=== PATIENT | male | born 1940 | race Caucasian/White ===

== ENCOUNTER → 2017-06-05 | Outpatient (CLI) | payer OTHER ==
[~2017-06-05] MED LIST: ACTOS 30 MG TAB30 M2 PO; ALLOPURINOL 30300 M2 PO; BYETTA PEN 11 PENIN2 SUBQ; FENOFIBRATE160 MG PO; LISINOPRIL20 MG PO; NEURONTIN600 MG PO; ZOCOR40 MG PO
--- NOTE | ~2017-06-05 | 2DMMODE ---
[facility] [place] [address] 2 D/M-MODE ECHOCARDIOGRAM Name: JOYCEZION L Room #: REG [facility]#: [id number] Admission: 06/05/17 Attend Phys: Yordan Suero MD Discharge: Date of : 36 Date of Service: 06/05/17 1205 Report #: [id number] THIS REPORT FOR: //name// APPROVED REPORT Study performed: 06/05/2017 09:50:28 EXAM: Comprehensive 2D, Doppler, and color-flow Echocardiogram Patient Location: Out-Patient Status: routine Other Information Study Quality: Adequate/Low parastenal window Indications Hx: CABG, HTN, HLP, DM 2D Dimensions RVDd: 45.42 mm LVEF(%): 50.50 (>50%) IVSd: 9.79 (7-11mm) LVOT Diam: 19.61 (18-24mm) LVDd: 45.32 mm PWd: 8.81 (7-11mm) LVDs: 33.73 (25-40mm) Aortic Root: 31.33 mm Alberto's LVEF: 50.50 % Volumes Left Atrial Volume (Systole) Single Plane 4CH: 69.15 mL Single Plane 2CH: 76.33 mL LA ESV Index: 36.00 mL/m2 Aortic Valve AoV Peak Sam.: 1.24 m/s AO Peak Gr.: 6.12 mmHg Mitral Valve MV Decel. Time: 157.96 ms MV E Max Sam.: 1.14 m/s IVRT: 64.59 ms Tricuspid Valve TR Peak Sam.: 2.31 m/s RAP Estimate: 5.00 mmHg TR Peak Gr.: 21.45 mmHg PA Pressure: 26.00 mmHg [facility] [address] [place] [address] 2 D/M-MODE ECHOCARDIOGRAM Name: ZION COOK Room #: [facility]#: [id number] Admission: 06/05/17 Attend Phys: Yordan Suero MD Discharge: Date of : 36 Date of Service: 06/05/17 1205 Report #: [id number] Left Ventricle The left ventricle is normal size. There is normal LV segmental wall motion. There is normal left ventricular wall thickness. Left ventricular systolic function is normal. LVEF is 50-55%. This study is not technically sufficient to allow evaluation of the LV diastolic function due to atrial fibrillation. Right Ventricle Right ventricle is not well visualized. Appears mildly dilated. Atria Left atrium is mildly dilated. Right atrium is mildly dilated. Aortic Valve The aortic valve is not well visualized. Appears mildly calcified. No aortic regurgitation is present. There is no aortic valvular stenosis. Mitral Valve The mitral valve is mildly thickened. Mild mitral annular calcification. Mild to moderate mitral regurgitation. Tricuspid Valve The tricuspid valve is normal in structure. There is mild to moderate tricuspid regurgitation. The right atrial pressure is estimated at 5 mmHg. Estimated PAP of 26mmHg. Pulmonic Valve Pulmonic valve is not well visualized. Great Vessels The aortic root is normal in size. Ascending aorta is not well visualized. IVC is normal in size and collapses >50% with inspiration. Pericardium There is no pericardial effusion. <Conclusion> The left ventricle is normal size. Left ventricular systolic function is normal. Left atrium is mildly dilated. Right atrium is mildly dilated. [facility] [place] [address] 2 D/M-MODE ECHOCARDIOGRAM Name: JOYCEZION L Room #: REG [facility]#: [id number] Admission: 06/05/17 Attend Phys: Yordan Suero MD Discharge: Date of : 36 Date of Service: 06/05/17 120 Report #: [id number] There is no aortic valvular stenosis. Mild to moderate mitral regurgitation. There is mild to moderate tricuspid regurgitation. The right atrial pressure is estimated at 5 mmHg. Estimated PAP of 26mmHg. There is no pericardial effusion. <ELECTRONICALLY SIGNED> By: Yordan Suero MD 06/05/175 04 1205 Yordan Suero MD /INF
== END ==
LOC: CV 08:43
DX: I25.119 Atherosclerotic heart disease of native coronary artery with unspecified angina pectoris (principal)

== ENCOUNTER → 2017-12-14 | Outpatient (CLI) | payer OTHER ==
[~2017-12-14] MED LIST changes: +ELIQUIS2.5 MG PO; +LIPITOR 20 MG T20 M1 PO; +TOPROL XL25 MG PO
== END ==
LOC: NUC 10:55 → EDSTATUS 13:24
DX: I25.10 Atherosclerotic heart disease of native coronary artery without angina pectoris (principal); E78.5 Hyperlipidemia, unspecified; E11.9 Type 2 diabetes mellitus without complications; I48.91 Unspecified atrial fibrillation; I10 Essential (primary) hypertension; Z95.1 Presence of aortocoronary bypass graft; Z87.891 Personal history of nicotine dependence

== ENCOUNTER → 2017-12-21 | Outpatient (CLI) | payer OTHER ==
[~2017-12-21] VITALS: Ht 170.2 cm; Wt 88.5 kg
--- NOTE | ~2017-12-21 | EKG ---
[place] [address] [facility] [place] [address] ELECTROCARDIOGRAM REPORT Name: ZION COOK [id number] Admission: 12/21/17 Attend Phys: Yordan Suero MD Discharge: Date of : 36 Report #: [id number] THIS REPORT FOR: //name// [facility] Test Date: 2017-12-21 Test Time: 07:01:53 Pat Name: ZION COOK Department: Room: Gender: M Gang Investigator: : 1940 Requested By: Yordan Suero Order Number: [id number] MD: Jacob Martin Measurements Intervals [place] Rate: 104 P: LA: QRS: 13 QRSD: 94 T: 29 QT: 304 QTc: 400 Interpretive Statements Atrial fibrillation Low voltage, extremity and precordial leads Compared to ECG 01/04/2000 23:16:48 Low QRS voltage now present Sinus rhythm no longer present Electronically Signed On 12-21-2017 9:01:45 GARAGE ATTENDANT by Jacob Martin [email or web address] <ELECTRONICALLY SIGNED> By: Jacob Martin MD, [facility] 12/21/17900 D: 02700 0 Jacob Martin MD, FACC /EPI
[2017-12-21 07:19] VITALS: BP 94/51
[2017-12-21 07:22] LABS: MCH 29.4 pg (26.0-34.0); MCHC 32.4 g/dL (28.0-37.0); MCV 90.7 fL (80.0-100.0); RBC 4.41 mil/uL (4.50-6.00); RDW 16.5 % (10.5-14.5); WBC 6.3 thou/uL (4.0-11.0)
[2017-12-21 07:33] LABS: CALCIUM 9.4 mg/dL (8.5-10.1); POTASSIUM 5.5 mmol/L (3.5-5.1)
== END ==
LOC: CATH 06:34
PROVIDERS: Internal Medicine Cardiovascular Disease
DX: I48.91 Unspecified atrial fibrillation (principal); Z53.9 Procedure and treatment not carried out, unspecified reason

== ENCOUNTER → 2018-01-01 | Outpatient (CLI) | payer OTHER ==
[~2018-01-01] VITALS: Ht 170.2 cm; Wt 89.4 kg
--- NOTE | ~2018-01-01 | EKG ---
[address] [place] [address] ELECTROCARDIOGRAM REPORT Name: ZION COOK [facility] [id number] Admission: 01/01/18 Attend Phys: Yordan Suero MD Discharge: Date of : 36 Report #: [id number] THIS REPORT FOR: //name// [facility] Test Date: 2018-01-01 Test Time: 09:45:29 Pat Name: ZION COOK Department: Room: Gender: Ribbon Inker: Ivy SOLIMAN : 1940 Requested By: Yordan Suero Order Number: [id number] MD: Jacob Martin Measurements Intervals [place] Rate: 95 P: DC: QRS: 1 QRSD: 87 T: 25 QT: 325 QTc: 409 Interpretive Statements Atrial fibrillation Low voltage, extremity leads Compared to ECG 12/21/2017 07:01:53 No significant changes Electronically Signed On 01-01-2018 14:14:35 CORE INSERTER by Jacob Martin [email or web address] <ELECTRONICALLY SIGNED> By: Jacob Martin MD, [facility] 01/01/18 1414 0945 0945 Jacob Martin MD, FACC /EPI
--- NOTE | ~2018-01-01 | HC ---
[facility] [place] [address] CONSULTATION Name: ZION COOK Room #: REG [facility]#: [id number] Admission: 01/01/18 Attend Phys: Yordan Suero MD Discharge: Date of : 36 Report #: [id number] THIS REPORT FOR: //name// CC: Yordan Mccarty DATE OF SERVICE: 01/01/2018 ATTENDING PHYSICIANS: Dr. Mccarty and Dr. Suero. REASON FOR CONSULTATION: Chronic kidney disease. HISTORY OF PRESENT ILLNESS: The patient followed in our office with CKD stage 3, baseline creatinine 1.5 to 2. He has a history of coronary artery disease and a recent abnormal stress test and is here for a heart catheterization. He is not really having anything in the way of chest pain, may be just some very minor symptoms in that regard. He is not short winded. PAST MEDICAL HISTORY: He has had previous coronary artery bypass in 1991, history of hypertension and chronic atrial fibrillation and he has had previous cataract surgeries. HOME MEDICATIONS: As listed include allopurinol 300 mg daily, Eliquis 2.5 mg daily, atorvastatin 20 mg daily, Byetta, Fenofibrate 160 mg daily, Neurontin 600 mg, lisinopril 20 mg daily, and metoprolol XL 25 mg daily. FAMILY HISTORY: Positive for cancer and heart disease and some diabetes. No renal disease. SOCIAL HISTORY: No cigarettes or alcohol. REVIEW OF SYSTEMS: GENERAL: He has been feeling reasonably well. EYES: Vision is fine. ENT: Hearing okay. Swallows okay. Denies mouth sores or ulcers. ENDOCRINE: Positive for the diabetes. RESPIRATORY: Denies shortness of breath, pleuritic pain, hemoptysis, or cough. CARDIAC: Some very minor chest pains. GASTROINTESTINAL: No nausea, vomiting, diarrhea, or bloody stool. GENITOURINARY: Reasonable urinary stream without dysuria, hematuria, or history of renal stone. NEUROLOGIC: He has got some numbness and burning at the bottom of his feet. MUSCULOSKELETAL: No arthritis. PHYSICAL EXAMINATION: GENERAL: This is a reasonably well-appearing elderly gentleman. [facility] [address] [place] [address] CONSULTATION Name: ZION COOK RADHA Room #: REG [facility]#: [id number] Admission: 01/01/18 Attend Phys: Yordan Suero MD Discharge: Date of : 36 Report #: [id number] SKIN: Unremarkable. SKELETAL: Well developed, well nourished. HEENT: Extraocular movements are full. Vision is intact. Mucous membranes are moist. NECK: No carotid bruits heard. CHEST: Clear to auscultation. HEART: Regular. ABDOMEN: Soft, nontender, without bruits, masses or organomegaly. EXTREMITIES: Show 1+ ankle edema. NEUROLOGIC: Shows some numbness in the feet. LABORATORY DATA: Hemoglobin is 13.7. Sodium 138, potassium 4.9, chloride 105, bicarbonate 27, creatinine 1.5, and BUN 40. ASSESSMENT: 1. Chronic kidney disease stage 3, followed in the office, apparently has diabetic nephropathy, I do not have a urine test available. 2. Positive stress test. He will be getting heart cath, he seems to be in good shape. Lisinopril has been on hold. 3. Chronic atrial fibrillation, on Eliquis. 4. History of coronary artery bypass, remote. <ELECTRONICALLY SIGNED> By: Adrián Maldonado MD 01/05/18 0823 1043 1553 Adrián Maldonado MD /nt
[2018-01-01 08:29] VITALS: BP 94/52
[2018-01-01 09:03] LABS: HEMATOCRIT 41.8 % (42.0-52.0); HEMOGLOBIN 13.7 gm/dL (14.0-18.0); MCH 29.6 pg (26.0-34.0); MCHC 32.8 g/dL (28.0-37.0); MCV 90.3 fL (80.0-100.0); RBC 4.63 mil/uL (4.50-6.00); WBC 7.1 thou/uL (4.0-11.0)
[2018-01-01 09:13] LABS: CALCIUM 9.8 mg/dL (8.5-10.1); CREATININE 1.5 mg/dL (0.7-1.3); POTASSIUM 4.9 mmol/L (3.5-5.1)
== END | disposition home or self-care (01) ==
LOC: CATH 07:49
PROVIDERS: Internal Medicine Cardiovascular Disease
DX: R06.09 Other forms of dyspnea (principal); Z53.9 Procedure and treatment not carried out, unspecified reason; I10 Essential (primary) hypertension; E11.9 Type 2 diabetes mellitus without complications; E78.5 Hyperlipidemia, unspecified; M19.90 Unspecified osteoarthritis, unspecified site; J44.9 Chronic obstructive pulmonary disease, unspecified; I25.10 Atherosclerotic heart disease of native coronary artery without angina pectoris; I25.2 Old myocardial infarction; I48.91 Unspecified atrial fibrillation; N19 Unspecified kidney failure; E66.09 Other obesity due to excess calories; Z79.899 Other long term (current) drug therapy; Z79.01 Long term (current) use of anticoagulants; Z95.1 Presence of aortocoronary bypass graft; Z87.891 Personal history of nicotine dependence; Z88.8 Allergy status to other drugs, medicaments and biological substances

== ENCOUNTER → 2019-01-07 | Outpatient (CLI) | payer OTHER | LOC: RAD 13:34 | DX: J98.4 Other disorders of lung (principal) ==

== ENCOUNTER → 2019-02-18 | Outpatient (CLI) | payer OTHER ==
--- NOTE | 2019-02-18 15:24 | 2DMMODE ---
[facility] [place] [address] 2 D/M-MODE ECHOCARDIOGRAM Name: ZION COOK RADHA Room #: REG [facility]#: [id number] ������������� Admission: 02/18/19 ������������� Attend Phys: Yordan Suero MD Discharge: ��� ������������� ��� Date of : 36 Date of Service: 02/18/19 1523 �� Report #: [id number] �������� ��������������������������������������������[id number] THIS REPORT FOR: //name// APPROVED REPORT Study performed: 02/18/2019 13:42:35 EXAM: Comprehensive 2D, Doppler, and color-flow Echocardiogram Patient Location: Echo lab Status: routine BSA: 2.02 HR: 120 bpm BP: 125/75 mmHg Other Information Study Quality: Technically Difficult/Technically Limited. Low parasternal window Technically limited study due to body habitus, lung disease. Indications Diabetes CAD Hypertension/HDD CABG 2D Dimensions RVDd: 38.61 mm IVSd: 9.73 (7-11mm) LVOT Diam: 18.81 (18-24mm) LVDd: 40.14 mm PWd: 10.27 (7-11mm) LVDs: 32.21 (25-40mm) Aortic Root: 24.96 mm IVC: 16.00 mm Volumes Left Atrial Volume (Systole) Single Plane 4CH: 59.18 mL Single Plane 2CH: 72.64 mL LA ESV Index: 36.00 mL/m2 Aortic Valve AoV Peak Sam.: 1.15 m/s AO Peak Gr.: 5.30 mmHg LVOT Max P.45 mmHg LVOT Max V: 0.78 m/s RITU Vmax: 1.89 cm2 [facility] [address] [place] [address] 2 D/M-MODE ECHOCARDIOGRAM Name: JOYCEZION RADHA Room #: REG CL [facility]#: [id number] ������������� Admission: 02/18/19 ������������� Attend Phys: Yordan Suero MD Discharge: ��� ������������� ��� Date of : 36 Date of Service: 02/18/19 1523 �� Report #: [id number] �������� ��������������������������������������������[id number] Mitral Valve MV Decel. Time: 160.30 ms MV E Max Sam.: 0.99 m/s IVRT: 78.43 ms Pulmonary Valve PV Peak Sam.: 0.67 m/s PV Peak Gr.: 1.80 mmHg Tricuspid Valve TR Peak Sam.: 2.44 m/s RAP Estimate: 5.00 mmHg TR Peak Gr.: 23.84 mmHg PA Pressure: 29.00 mmHg Left Ventricle The left ventricle is normal size. There is normal left ventricular wall thickness. Left ventricular systolic function is borderline. LVEF is 50%. This study is not technically sufficient to allow evaluation of the LV diastolic function due to atrial fibrillation. Right Ventricle Right ventricle is at the upper limits of normal. Right ventricle is mildly hypokinetic. Atria Left atrium is mildly dilated. Right atrium is mildly dilated. Aortic Valve The aortic valve is normal in structure. No aortic regurgitation is present. There is no aortic valvular stenosis. Mitral Valve Mild mitral annular calcification. Mild to moderate mitral regurgitation. No evidence of mitral valve stenosis. Tricuspid Valve The tricuspid valve is normal in structure. Mild tricuspid regurgitation. PAP is estimated at 29 mmHg. Pulmonic Valve Pulmonic valve is not well visualized. Great Vessels The aortic root is normal in size. Ascending aorta is not well [facility] [address] [place] [address] 2 D/M-MODE ECHOCARDIOGRAM Name: JOYCEZION RADHA Room #: REG [facility]#: [id number] ������������� Admission: 02/18/19 ������������� Attend Phys: Yordan Suero MD Discharge: ��� ������������� ��� Date of : 36 Date of Service: 02/18/19 1523 �� Report #: [id number] �������� ��������������������������������������������[id number] visualized. IVC is normal in size and collapses >50% with inspiration. Pericardium There is no pericardial effusion. <Conclusion> The left ventricle is normal size. There is normal left ventricular wall thickness. Left ventricular systolic function is borderline. Right ventricle is at the upper limits of normal. Left atrium is mildly dilated. Right atrium is mildly dilated. The aortic valve is normal in structure. Mild mitral annular calcification. Mild to moderate mitral regurgitation. Mild tricuspid regurgitation. PAP is estimated at 29 mmHg. ��������������������������������������������� <ELECTRONICALLY SIGNED> ���������������������������������������� By: Yordan Suero MD ��������������������������������������������� 02/18/19 1523 1523 1523 Yordan Suero MD /JUANCARLOS
== END ==
LOC: CV 09:47
DX: I08.1 Rheumatic disorders of both mitral and tricuspid valves (principal); I25.10 Atherosclerotic heart disease of native coronary artery without angina pectoris; I10 Essential (primary) hypertension; E11.9 Type 2 diabetes mellitus without complications; Z95.1 Presence of aortocoronary bypass graft

== ENCOUNTER → 2019-03-05 | Outpatient (CLI) | payer OTHER | LOC: CAT 12:58 | DX: J44.9 Chronic obstructive pulmonary disease, unspecified (principal); J90 Pleural effusion, not elsewhere classified; J98.11 Atelectasis; Z87.891 Personal history of nicotine dependence ==

== ENCOUNTER → 2019-03-18 | Outpatient (CLI) | payer OTHER ==
[2019-03-18 11:17] LABS: HEMOGLOBIN 12.9 gm/dL (14.0-18.0); MCH 30.2 pg (26.0-34.0); MCV 91.4 fL (80.0-100.0); RBC 4.27 mil/uL (4.50-6.00); WBC 5.9 thou/uL (4.0-11.0)
[2019-03-18 11:24] LABS: CALCIUM 9.9 mg/dL (8.5-10.1); CREATININE 1.6 mg/dL (0.7-1.3); POTASSIUM 5.2 mmol/L (3.5-5.1)
[2019-03-18 11:29] LABS: INR 1.1; PROTIME 11.5 Seconds (9.3-11.4)
[2019-03-18 13:41] LABS: CLARITY SLIGHT CLOUDY; COLOR YELLOW; SOURCE LEFT THORACENTESIS; TOTAL VOLUME 63 mL
[2019-03-18 13:42] LABS: SOURCE LEFT THORACENTESIS
[2019-03-18 14:03] LABS: BF NUCLEATED CELLS 111; BF RBC 253
[2019-03-18 14:51] LABS: BF MACROPHAGE 9; BF NEUTROPHILS 0
[2019-03-19 14:07] LABS: BODY FLUID ALBUMIN 1.3 g/dL (()); BODY FLUID AMYLASE 32 U/L (()); BODY FLUID GLUCOSE 95 mg/dL (()); BODY FLUID LDH 72 IU/L (()); BODY FLUID PROTEIN 2.3 g/dL (())
--- NOTE | 2019-03-20 11:06 | PATH ---
[facility] [address] [place] [address] PATHOLOGY RPT PROCEDURE Name: ZION COOK Room #: REG Joce Jeff.#: [id number] ������������������ Admission: 03/18/19 ������������������ Date of : 36 Discharge: Report #: [id number] Path Case #: [id number] Note [facility] Accession Number: [id number] TESTS RESULT FLAG UNITS REF RANGE LAB Clinician Provided Cytology Information No. of containers..01 Other (Miscellaneous) Source: LEFT PLEURAL FLUID DIAGNOSIS: LEFT PLEURAL FLUID NEGATIVE FOR MALIGNANT CELLS. MESOTHELIAL CELLS ARE PRESENT. Pathologist ICD10: 02 J91.8 Signed out by: Gladys Allen MD, Pathologist NPI- [id number] Performed by: Isabel Jenkins, Reserve Operator ([facility]) Gross description: 01 40ML, YELLOW, CLEAR /LCS FLAG LEGEND: L-Low Normal,H-High Normal,LL-Alert Low,HH-Alert High <-Panic Low,>-Panic High,A-Abnormal,AA-Critical Abnormal Performed at: [address] [place] [address] Josh Mills MD, [address] [address] Gladys Allen MD, Specimen Comment: A courtesy copy of this report has been sent to Specimen Comment: [phone], . Specimen Comment: Report sent to / DR KERR Specimen Comment: A duplicate report has been generated due to demographic updates. Performed at: [address], [place], [place] [id number] MD Josh Mills MD Phone: [phone]
== END | disposition home or self-care (01) ==
LOC: ULTRA 10:24
PROVIDERS: Internal Medicine Pulmonary Disease
DX: J90 Pleural effusion, not elsewhere classified (principal); R06.02 Shortness of breath; Z79.899 Other long term (current) drug therapy

== ENCOUNTER → 2019-04-01 | Outpatient (CLI) | payer OTHER | LOC: PET 10:17 | DX: J90 Pleural effusion, not elsewhere classified (principal); R91.1 Solitary pulmonary nodule ==

== ENCOUNTER 2019-04-17 05:59 | Outpatient (CLI) | payer OTHER ==
[~2019-04-17] VITALS: Ht 170.2 cm; Wt 88.5 kg
[~2019-04-17 05:59] MED LIST changes: -ALLOPURINOL 30300 M2 PO; +BYDUREON P2 MG/0.65 SUBQ; +METOPROLOL SUC100 MG PO; +STIOLTO RESPIMAT4 GM INH; +VENTOLIN HFA 1818 GM INH; +ZYLOPRIM300 MG PO
[2019-04-17 07:32] VITALS: BP 99/64
== END 2019-04-17 09:45 | disposition home or self-care (01) ==
LOC: CAT 05:59 → TBA 05:59 → CATH 05:59 → OR 05:59 → TBA 06:00 → CAT 09:45
DX: J47.9 Bronchiectasis, uncomplicated (principal); B96.89 Other specified bacterial agents as the cause of diseases classified elsewhere; R91.1 Solitary pulmonary nodule; J96.11 Chronic respiratory failure with hypoxia; R91.8 Other nonspecific abnormal finding of lung field; I10 Essential (primary) hypertension; I48.2 Chronic atrial fibrillation; I25.10 Atherosclerotic heart disease of native coronary artery without angina pectoris; Z98.49 Cataract extraction status, unspecified eye; Z79.01 Long term (current) use of anticoagulants; Z88.7 Allergy status to serum and vaccine; Z95.1 Presence of aortocoronary bypass graft; Z79.899 Other long term (current) drug therapy; Z82.49 Family history of ischemic heart disease and other diseases of the circulatory system; Z83.3 Family history of diabetes mellitus; Z79.82 Long term (current) use of aspirin; Z88.8 Allergy status to other drugs, medicaments and biological substances; Z86.2 Personal history of diseases of the blood and blood-forming organs and certain disorders involving the immune mechanism
CPT/HCPCS: 50010; 62110; 62900; 70005

== ENCOUNTER → 2019-09-06 | Outpatient (CLI) | payer OTHER | LOC: CAT 10:08 | DX: R90.82 White matter disease, unspecified (principal); Z88.8 Allergy status to other drugs, medicaments and biological substances; Z85.118 Personal history of other malignant neoplasm of bronchus and lung ==

== ENCOUNTER 2019-10-26 08:10 | Inpatient (IN) | payer OTHER ==
[~2019-10-26] VITALS: Ht 170.2 cm; Wt 92.5 kg
[2019-10-26] VITALS (7 sets, daily range): BP systolic 90–122; BP diastolic 46–91
[2019-10-26 08:28] LABS: ABSOLUTE NEUTROPHILS 8.4 thou/uL (1.4-8.2); BASOPHILS 1.1 % (0.0-2.0); HEMATOCRIT 37.5 % (42.0-52.0); HEMOGLOBIN 12.2 gm/dL (14.0-18.0); MCHC 32.5 g/dL (28.0-37.0); MCV 92.3 fL (80.0-100.0); MONOCYTES 8.7 % (1.0-8.0); PLATELET COUNT 159 thou/uL (150-400); POLYS 80.2 % (36.0-66.0); RBC 4.07 mil/uL (4.50-6.00); RDW 15.1 % (10.5-14.5); WBC 10.5 thou/uL (4.0-11.0)
[2019-10-26 08:36] LABS: ANION GAP 10 mmol/L (7-16); BUN 37 mg/dL (7-18); CALCIUM 9.9 mg/dL (8.5-10.1); CHLORIDE 104 mmol/L (98-107); CO2 23 mmol/L (21-32); CREATININE 1.6 mg/dL (0.7-1.3); GLUCOSE 120 mg/dL (74-106); POTASSIUM 4.2 mmol/L (3.5-5.1); SODIUM 137 mmol/L (136-145)
[2019-10-26 08:45] LABS: TROPONIN-I <0.06 ng/mL (<0.06)
--- NOTE | 2019-10-26 10:50 | EKG ---
[place] [address] [facility] [place] [address] ELECTROCARDIOGRAM REPORT Name: ZION COOK [id number] Admission: 10/26/19 Attend Phys: Discharge: Date of : 36 Report #: [id number] THIS REPORT FOR: //name// [facility] ED Test Date: 2019-10-26 Test Time: 08:48:14 Pat Name: ZION COOK Department: Room: Gender: M Lead Sustainability Specialist: nicki : 1940 Requested By: Arnie Westfall Order Number: [id number] MD: Jose Keita Measurements Intervals [place] Rate: 115 P: [place]: QRS: 7 QRSD: 99 T: 18 QT: 357 QTc: 494 Interpretive Statements Atrial fibrillation Low voltage, extremity leads RSR' in V1 or V2, right VCD or RVH Borderline prolonged QT interval Compared to ECG 01/01/2018 09:45:29 Right ventricular hypertrophy now present RSR' in V1 or V2 now present Electronically Signed On 10-26-2019 10:50:18 METAL REFINER by Jose Keita [email or web address] <ELECTRONICALLY SIGNED> By: Jose Keita MD 10/26/19 1050 0848 0848 Jose Keita MD /EPI
--- NOTE | 2019-10-26 12:50 | NUR ---
REC PT FROM ED AROUND 1245, A&0X4, AMB W/CANE AND SLOW SOMEWHAT GAIT. REPORTS OF TACHY/AFIB 110-130S, 150 UP WHILE PULLING DOWN PANTS AND W/ACTIVITIES. NO C/O PAIN ANYWHERE AT THIS TIME, ANXIOUS TO HAVE HIS LUNCH THAT WAS WAITING IN THE ROOM FOR HIM. WILL DO ADMISSION AND ADD IN MEDICATIONS AND INTRO HIM TO NUSE TAKING OVER CARE. SEE SEPARATE INTERVENTIONS FOR ASSESSMENTS, CARDIAC MONITORED
--- NOTE | 2019-10-26 13:32 | NUR ---
GAVE REPORT TO ONCOMING NURSE WHO WILL HANDLE UPDATING ANY MEDS AND SENDING THEM TO PHARMACY. BED ALARM ENGAGED
[2019-10-26] MEDS ORDERED: LIPITOR 20 MG T20 M1 PO (14:47)
--- NOTE | 2019-10-26 15:56 | NUR ---
ASSUMED CARE AT 1300, SHIFT ASSESSMENT DONE, NEW ADMIT FOR MORNING NURSE. MED REC AND ALLERGIES DOCUMENTED. PT'S HAD TO HAVE A BM AND HEART RATE WENT UP TO 150-160s, DR KERR WAS INFORMED, RECEIVED ORDER FOR CARDIZEM BLOUS AND DRIP. HR IS UNDER 120 NOW. DRIP RUNNING AT 5MG/HR. PT BROUGHT HOME MEDS WITH HIM, MEDICATIONS WERE BAGGED AND SENT TO INPATIENT PHARMACY. WILL CONTINUE TO ASSESS AND ASSIST WITH ADLs NEEDED.
[2019-10-27 04:00] VITALS: BP 93/53
[2019-10-27 04:50] LABS: CALCIUM 9.1 mg/dL (8.5-10.1); CREATININE 1.9 mg/dL (0.7-1.3); POTASSIUM 4.5 mmol/L (3.5-5.1)
--- NOTE | 2019-10-27 06:18 | NUR ---
ASSUME CARE 1900. PT/VITALS STABLE. BP RUSN SOFT BUT MAP IS GREATER THAN 60. cARDIZEM DRIP RUNNING TO HELP REGULATE HR. PT STILL IN AFIB WITH HR DOWN IN THE 80s AND 90s. CARDIZEM RUNNING AT 5MG/HR TO KEEP HR < 100. PATIENT TOLERTING TREATMENT WELL. PT TOLERATES ACTIVITY WELL. UP WITH CANE /STB ASSIST TO BATHROOM. PLAN IS TO CONTINUE TO MONITOR HR/HEART RHYTHM / MANAGE COPD EXACERBATION WITH ABX AND BREATHING TREATMENTS. WILL CONITNUE TO MONITOR AND FOLLOW WITH POC
[2019-10-27 07:15] VITALS: BP 90/48
--- NOTE | 2019-10-27 08:04 | NUR ---
ASSUMED CARE OF PT APPROX 0715, A&0X4, PT'S VOICE HOARSE; HAS CONSISTENT COUGH. STATES HE EVEN ENJOYS THE INTERUPTIONS SINCE HE'S FEELING TOO ALONE AT HIS APT COMPLEX. DRY COUGH, CARDIAC GTT, B/P'S 90 W/MAP STILL >60S AT THIS CURRENT TIME. 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 SEE SEPARATE INTERVENTIONS FOR ASSESSMENTS. WILL CONTINUE TO MONITOR
[2019-10-27 15:25] VITALS: BP 134/72
[2019-10-27 15:30] VITALS: BP 98/61
--- NOTE | 2019-10-27 16:00 | NUR ---
ASSUMED CARE AT 1300, SHIFT ASSESSMENT DONE, MEDS GIVEN, VSS. AFIB ON THE MONITOR, RATE CONTROLLED. ROOM AIR, DENIES ANY PAIN, NAUSEA, VOMITING. WILL CONTINUE TO ASSESS AND ASSIST WITH ADLs NEEDED.
[2019-10-27 21:10] VITALS: BP 105/68
[2019-10-28 00:21] VITALS: BP 111/74
[2019-10-28 05:04] VITALS: BP 119/67
--- NOTE | 2019-10-28 05:42 | NUR ---
pt resting on and off in room, no c/o pain, vss, remains afib rate controlled, starting po cardizem this am, voiding per urinal, will con't to monitor per ppoc.
[2019-10-28 07:25] VITALS: BP 121/76
--- NOTE | 2019-10-28 10:35 | NUR ---
ASSUMED CARE AT 0700, SHIFT ASSESSMENT DONE, MEDS GIVEN, VSS. DENIES PAIN, NAUSEA, VOMITING. UP WITH STANDBY ASSIST, ROOM AIR, AFIB ON THE MONITOR. WORKED WITH PHYSCIAL THERAPHY, WAITING TO BE SEEN BY OCCUPATIONAL THERAPHY, WANTS TO TAKE A SHOWER, ASKED TO WAIT FOR OT. WILL CONTINUE TO ASSESS AND ASSIST WITH ADLs NEEDED.
[2019-10-28] MEDS ORDERED: RAYOS5 MG PO (13:30)
[2019-10-28] MEDS ORDERED: CEFDINIR300 MG PO (13:30)
--- NOTE | 2019-10-28 14:40 | NUR ---
patient to dc home today with HH care. patient lives alone in [facility]. he has a scooter he uses and cont to drive. He plans to call his friend for transport. [facility] has no preference of HH [facility].
[2019-10-28 14:43] VITALS: BP 119/67
--- NOTE | 2019-10-28 15:38 | NUR ---
FAXED REFERRAL TO [facility] SPOKE WITH PUJA SHE WILL REVIEW. DC TODAY. DP TO FOLLOW.
[2019-10-28 15:50] VITALS: BP 103/49
[2019-10-28 16:15] VITALS: BP 119/67
== END 2019-10-28 18:44 | disposition home health service (06) | DRG 190 ==
LOC: ER 08:10 → 2N 10:55 → EROBS 10:55 → 2N 12:50
PROVIDERS: Emergency Medicine; ADMIT Family Medicine
DX: J44.1 Chronic obstructive pulmonary disease with (acute) exacerbation (principal); N17.0 Acute kidney failure with tubular necrosis; E11.9 Type 2 diabetes mellitus without complications; I25.10 Atherosclerotic heart disease of native coronary artery without angina pectoris; I48.91 Unspecified atrial fibrillation; I10 Essential (primary) hypertension; E78.00 Pure hypercholesterolemia, unspecified; M19.90 Unspecified osteoarthritis, unspecified site; M10.9 Gout, unspecified; Z79.899 Other long term (current) drug therapy; Z88.7 Allergy status to serum and vaccine; Z85.118 Personal history of other malignant neoplasm of bronchus and lung; Z95.5 Presence of coronary angioplasty implant and graft; I25.2 Old myocardial infarction; Z87.891 Personal history of nicotine dependence; Z79.01 Long term (current) use of anticoagulants
CPT/HCPCS: 10081; 10194

== ENCOUNTER 2019-11-15 13:05 | Emergency (ER) | payer OTHER ==
[~2019-11-15] VITALS: Ht 172.7 cm; Wt 88.5 kg
[~2019-11-15 13:05] MED LIST changes: +CEFDINIR300 MG PO; +RAYOS5 MG PO
[2019-11-15 13:44] LABS: URINE BILIRUBIN NEGATIVE (Negative); URINE BLOOD NEGATIVE (Negative); URINE CLARITY CLEAR; URINE COLOR YELLOW; URINE GLUCOSE-RANDOM* NEGATIVE (Negative); URINE KETONES NEGATIVE (Negative); URINE LEUKOCYTES-REFLEX TRACE (Negative); URINE NITRITE-REFLEX NEGATIVE (Negative); URINE PROTEIN (DIPSTICK) NEGATIVE (Negative); URINE UROBILINOGEN 0.2 E.U./dl (0.2-1.0)
[2019-11-15 13:45] LABS: HEMOGLOBIN 12.9 gm/dL (14.0-18.0); MCH 29.8 pg (26.0-34.0); MCHC 32.3 g/dL (28.0-37.0); MCV 92.3 fL (80.0-100.0); PLATELET COUNT 172 thou/uL (150-400); RBC 4.33 mil/uL (4.50-6.00); RDW 16.3 % (10.5-14.5); WBC 7.9 thou/uL (4.0-11.0)
[2019-11-15 14:32] LABS: ANION GAP 8 mmol/L (7-16); BUN 66 mg/dL (7-18); CHLORIDE 116 mmol/L (98-107); CO2 22 mmol/L (21-32); CREATININE 1.5 mg/dL (0.7-1.3); DIRECT BILIRUBIN < 0.1 mg/dL (<0.1-0.2); GLUCOSE 87 mg/dL (74-106); POTASSIUM 4.5 mmol/L (3.5-5.1); SGOT 55 U/L (15-37); SGPT 42 U/L (30-65); SODIUM 146 mmol/L (136-145); TOTAL BILIRUBIN 0.4 mg/dL (<0.1-1.0); TOTAL PROTEIN 4.5 g/dL (6.4-8.2)
[2019-11-15 14:33] LABS: ABSOLUTE NEUTROPHILS 6.1 thou/uL (1.4-8.2); PLATELET ESTIMATE NORMAL
[2019-11-15 14:36] LABS: CALCIUM 7.7 mg/dL (8.5-10.1)
[2019-11-15] MEDS ORDERED: ANUSOL-HC30 GM TOP (16:28)
[2019-11-15 17:08] VITALS: BP 108/53
== END 2019-11-15 16:50 | disposition home or self-care (01) ==
LOC: ER 13:05
PROVIDERS: Emergency Medicine
DX: R33.9 Retention of urine, unspecified (principal); I10 Essential (primary) hypertension; E78.00 Pure hypercholesterolemia, unspecified; J44.9 Chronic obstructive pulmonary disease, unspecified; K64.9 Unspecified hemorrhoids; M10.9 Gout, unspecified; I48.91 Unspecified atrial fibrillation; E11.9 Type 2 diabetes mellitus without complications; Z95.1 Presence of aortocoronary bypass graft; Z79.899 Other long term (current) drug therapy; Z88.7 Allergy status to serum and vaccine; Z87.891 Personal history of nicotine dependence

== ENCOUNTER → 2020-02-07 | Outpatient (CLI) | payer OTHER ==
[~2020-02-07] MED LIST changes: +ANUSOL-HC30 GM TOP
== END ==
LOC: ULTRA 08:16
DX: N28.1 Cyst of kidney, acquired (principal); K76.0 Fatty (change of) liver, not elsewhere classified; K76.89 Other specified diseases of liver; R74.8 Abnormal levels of other serum enzymes

== ENCOUNTER → 2020-09-10 | Outpatient (CLI) | payer OTHER | LOC: SJCVCIMAG 08-13 11:42 | PROVIDERS: ATTEND Internal Medicine Cardiovascular Disease | DX: I08.1 Rheumatic disorders of both mitral and tricuspid valves (principal); I11.9 Hypertensive heart disease without heart failure; R94.31 Abnormal electrocardiogram [ECG] [EKG]; I25.10 Atherosclerotic heart disease of native coronary artery without angina pectoris; I48.91 Unspecified atrial fibrillation; E78.00 Pure hypercholesterolemia, unspecified; Z95.1 Presence of aortocoronary bypass graft; Z79.899 Other long term (current) drug therapy; Z87.891 Personal history of nicotine dependence ==

== ENCOUNTER → 2021-01-28 | Outpatient (CLI) | payer OTHER ==
[2021-01-28 14:45] LABS: CLARITY SLIGHTLY CLOUDY; COLOR YELLOW; SOURCE LEFT CHEST; TOTAL VOLUME 56 mL
[2021-01-28 15:30] LABS: BF NUCLEATED CELLS 218 /mm3; BF RBC 1056 /mm3
[2021-01-28 15:57] LABS: BF MACROPHAGE 6 %; BF NEUTROPHILS 0 %
[2021-01-29 13:08] LABS: BODY FLUID ALBUMIN 1.3 g/dL (Not Estab.); BODY FLUID AMYLASE 25 U/L (()); BODY FLUID GLUCOSE 123 mg/dL (()); BODY FLUID LDH 58 IU/L (()); BODY FLUID PROTEIN 2.1 g/dL (())
[2021-02-01 10:37] LABS: SOURCE CHEST
--- NOTE | 2021-02-01 11:07 | PATH ---
[facility] [address] [place] [address] PATHOLOGY RPT PROCEDURE Name: ZION COOK Room #: REG Joce Perkins.#: [id number] Admission: 01/28/21 Date of : 36 Discharge: Report #: [id number] Path Case #: [id number] Note [facility] Accession Number: [id number] TESTS RESULT FLAG UNITS REF RANGE LAB Clinician Provided Cytology Information No. of containers..01 Other (Miscellaneous) Source: 01 PLEURAL FLUID DIAGNOSIS: 02 PLEURAL FLUID NEGATIVE FOR MALIGNANT CELLS. REACTIVE MESOTHELIAL CELLS ARE PRESENT. THIS INTERPRETATION INCLUDES EVALUATION OF A CELL BLOCK. CHRONIC INFLAMMATION IN THE BACKGROUND. Pathologist ICD10: 02 J90 Signed out by: 02 Gladys Allen MD, Pathologist NPI- [id number] Performed by: Krista Bush Watch Band Assembler ([facility]) Gross description: 01 20ML, CLEAR YELLOW, 1 TP 1 CB /LCS 01/28/2021 1653 Local FLAG LEGEND: L-Low Normal,H-High Normal,LL-Alert Low,HH-Alert High <-Panic Low,>-Panic High,A-Abnormal,AA-Critical Abnormal Performed at: [address] [place] [address] Celso Henley MD, [address] [address] Gladys Allen MD, Performed at: [address], [place], [place] [id number] MD Celso Henley MD Phone: [phone]
== END | disposition home or self-care (01) ==
LOC: ULTRA 01-12 14:23
PROVIDERS: ATTEND Pediatrics
DX: J90 Pleural effusion, not elsewhere classified (principal); J98.11 Atelectasis; R06.02 Shortness of breath; J44.9 Chronic obstructive pulmonary disease, unspecified; Z88.7 Allergy status to serum and vaccine; Z98.890 Other specified postprocedural states; Z79.899 Other long term (current) drug therapy

== ENCOUNTER → 2021-09-10 | Outpatient (CLI) | payer OTHER | LOC: SJCVC 12:53 | PROVIDERS: ATTEND Internal Medicine Cardiovascular Disease | DX: R94.31 Abnormal electrocardiogram [ECG] [EKG] (principal); I48.91 Unspecified atrial fibrillation; I25.10 Atherosclerotic heart disease of native coronary artery without angina pectoris; E78.00 Pure hypercholesterolemia, unspecified; Z79.84 Long term (current) use of oral hypoglycemic drugs; Z79.899 Other long term (current) drug therapy; J44.9 Chronic obstructive pulmonary disease, unspecified; I12.9 Hypertensive chronic kidney disease with stage 1 through stage 4 chronic kidney disease, or unspecified chronic kidney disease; E11.22 Type 2 diabetes mellitus with diabetic chronic kidney disease; N18.9 Chronic kidney disease, unspecified; I65.29 Occlusion and stenosis of unspecified carotid artery; Z98.61 Coronary angioplasty status; Z95.1 Presence of aortocoronary bypass graft; Z98.890 Other specified postprocedural states; R60.0 Localized edema; Z88.8 Allergy status to other drugs, medicaments and biological substances ==